=== PATIENT | female | born 1975 | race Caucasian/White ===

== ENCOUNTER → 2018-03-24 | Outpatient (REF) ==
[~2018-03-24] MED LIST: ACYC-50 PO; CLIN300C99 PO; DICL100G39 TOP; DOCU-416 PO; FLU150 PO; FLUC150T40 PO; FLUT16SP19 NS; FLUT9.9S; IBUP800T37 PO; LEVO100T95 PO; LEVO750T44 PO; MULT-885 PO; TRAM-420 PO; VALA100059 PO
== END ==
DX: Z02.9 Encounter for administrative examinations, unspecified (principal)

== ENCOUNTER → 2018-10-26 | Outpatient (CLI) | payer OTHER ==
--- NOTE | 2018-10-26 14:49 | RADIOLOGY IMAGING REPORT ---
FACILITY: [facility] PATIENT NAME: Irma Beck : 1975 MR: [id number] V: [id number] EXAM DATE: ORDERING PHYSICIAN: SILVERIO VILLEGAS TECHNOLOGIST: Location: [facility] Patient: Irma Beck : 1975 Visit/Account:[id number] Date of Sevice: 10/26/2018 FOREARM RIGHT Indication: Distal forearm swelling along the lateral aspect Comparison: None available Findings: Two views of the right forearm show no evidence of fracture, dislocation, or acute osseous abnormalit y. There is no focal soft tissue abnormality. No evidence of radiopaque foreign body. IMPRESSION: 1.No acute osseous abnormality right forearm Report Dictated By: Hammad Leslie at 10/26/2018 2:43 PM Report E-Signed By: Hammad Leslie at 10/26/2018 2:43 PM [id number]
== END ==
LOC: RAD 13:43
PROVIDERS: ATTEND Emergency Medicine
DX: M79.631 Pain in right forearm (principal)

== ENCOUNTER → 2019-01-25 | Outpatient (CLI) | payer OTHER ==
[~2019-01-25] MED LIST changes: +SCOP1PAT2 TOP
[2019-01-25 15:26] LABS: PLATELET COUNT, AUTOMATED 305 K/uL (150-450)
== END ==
LOC: LAB 15:01
PROVIDERS: ATTEND Emergency Medicine
DX: E03.9 Hypothyroidism, unspecified (principal); R63.5 Abnormal weight gain
CPT/HCPCS: 36415; 82040; 82247; 82306; 82310; 82374; 82435; 82465; 82565; 82607; 82947; 83036; 83718; 84075; 84132; 84155; 84295; 84443; 84450; 84460; 84478; 84520; 85025

== ENCOUNTER → 2019-01-26 | Outpatient (CLI) | payer OTHER ==
--- NOTE | 2019-01-26 18:33 | RADIOLOGY IMAGING REPORT ---
FACILITY: [facility] PATIENT NAME: Irma Beck : 1975 MR: [id number] V: [id number] EXAM DATE: ORDERING PHYSICIAN: SILVERIO VILLEGAS TECHNOLOGIST: Location: [facility] Patient: Irma Beck : 1975 Visit/Account:[id number] Date of Sevice: 01/26/2019 Renal ultrasound Indication: Elevated creatinine. Comparison: None available Findings: Right kidney measures 10.8 x 4.2 x 6.2 cm in cc, AP, and transverse dimensions respectively. Left kidney measures 12.5 x 4.4 x 6.3 cm in cc, AP, and transverse dimensions respectively. There is normal echogenicity of the bilateral kidneys. No evidence of hydronephrosis or nephrolithiasis. Bilateral ureteral jets were seen. Urinary bladder imaging was negative. The prevoid bladder volume measured 260 mL and the post void me asured 7 mL. Visualized abdominal aorta and IVC are unremarkable. IMPRESSION: 1. Normal Renal ultrasound. Report Dictated By: Jair Prakash at 01/26/2019 6:27 PM Report E-Signed By: Jair Prakash at 01/26/2019 6:29 PM WSN:[id number]
== END ==
LOC: US 12:44
PROVIDERS: ATTEND Emergency Medicine
DX: R79.89 Other specified abnormal findings of blood chemistry (principal)
CPT/HCPCS: 76705

== ENCOUNTER → 2019-01-26 | Outpatient (CLI) | payer OTHER | LOC: LAB 11:23 | PROVIDERS: ATTEND Emergency Medicine | DX: R79.89 Other specified abnormal findings of blood chemistry (principal) | CPT/HCPCS: 81001; 82043; 82310; 82374; 82435; 82565; 82947; 84132; 84295; 84520 ==